=== PATIENT | male | born 1980 | race Caucasian/White ===

== ENCOUNTER 2022-08-04 21:44 | Emergency (ER) | payer BC, OTHER ==
[2022-08-04 21:55] VITALS: O2SAT 100
[2022-08-04] MEDS ORDERED: MORPHINE SULFATE 4 MG INJ IV ONE (22:02)
[2022-08-04] MEDS ORDERED: Zofran 4 MG/2 ML VIAL IV ONE (22:02)
[2022-08-04] MEDS ORDERED: Sodium Chloride 0.9% 1000 ML 1,000 ML IV STA (22:02)
[2022-08-04] MEDS ORDERED: Zofran 4 MG/2 ML VIAL ONE (22:05)
[2022-08-04] MEDS ORDERED: Sodium Chloride 0.9% 1000 ML 1,000 ML ONE (22:06)
[2022-08-04] MEDS ORDERED: MORPHINE SULFATE 4 MG INJ ONE (22:06)
--- NOTE | 2022-08-04 22:07 | ERPHSYRPT ---
- History of Present Illness Time Seen by Provider: 08/04/22 22:02 Historian: patient Exam Limitations: no limitations Patient Subjective Stated Complaint: pt has been having abdominal for the last two nights, states he has been drinking baking soda and it goes away. pt states he has been having regular bms. Triage Nursing Assessment: pt is alert and oriented, walks slowly to rooms, holding abdomen, abdomen is tender to touch and there are regular bowel sounds throughout.pt rates pain in abdoemn at 10 Physician History: 41 years old male presented in the ER with chief complaint of periumbilical pain starting almost 2 hours prior to arrival with some radiation to right lower quadrant, more with palpation and movements and no significant relieving factors. Denies associated nausea vomiting diarrhea. No fever or chills reported. Denies any urinary symptoms. Timing/Duration: hour(s) (2), constant, sudden, worse Activities at Onset: rest Quality: sharpness Abdominal Pain Onset Location: periumbilical Pain Radiation: RLQ, epigastric Severity of Pain-Max: severe Severity of Pain-Current: severe Modifying Factors: Worsens With: coughing, movement, palpation Associated Symptoms: denies symptoms Previous symptoms: no prior history Allergies/Adverse Reactions: No Known Drug Allergies Allergy (Unverified 08/04/22 21:55) Hx Tetanus, Diphtheria Vaccination/Date Given: No Travel Risk - International Travel Have you traveled outside of the country in past 3 weeks: No - Coronavirus Screening Are you exhibiting any of the following symptoms?: No Close contact with a COVID-19 positive Pt in past 14-21 Days: No - Vaccine Status Have you recieved a Covid-19 vaccination: No - Review of Systems Constitutional: No Symptoms Eyes: No Symptoms Ears, Nose, & Throat: No Symptoms Respiratory: No Symptoms Cardiac: No Symptoms Abdominal/Gastrointestinal: Abdominal Pain Genitourinary Symptoms: No Symptoms Musculoskeletal: No Symptoms Neurological: No Symptoms Psychological: No Symptoms Endocrine: No Symptoms Hematologic/Lymphatic: No Symptoms Immunological/Allergic: No Symptoms - Past Medical History Pertinent Past Medical History: Yes GI Medical History: Polyps Psycho-Social History: Depression - Past Surgical History Past Surgical History: Yes Other Surgical History: r knee repair - Social History Smoking Status: Never smoker Drug Use: none - Nursing Vital Signs Nursing Vital Signs: Initial Vital Signs Temperature 97.0 F 08/04/22 21:47 Pulse Rate 86 08/04/22 21:47 Respiratory Rate 18 08/04/22 21:47 Blood Pressure 136/97 08/04/22 21:47 O2 Sat by Pulse Oximetry 100 08/04/22 21:47 Pain Scale Pain Intensity 8 - Physical Exam General Appearance: no apparent distress, alert Eye Exam: PERRL/EOMI, eyes nml inspection Ears, Nose, Throat Exam: normal ENT inspection, TMs normal, pharynx normal, moist mucous membranes Neck Exam: normal inspection, non-tender, supple, full range of motion Respiratory Exam: normal breath sounds, lungs clear Cardiovascular Exam: regular rate/rhythm, normal heart sounds Gastrointestinal/Abdomen Exam: soft, normal bowel sounds, tenderness (Epigastric/periumbilical with tenderness right lower quadrant.), guarding Extremity Exam: normal inspection, normal range of motion Neurologic Exam: alert, oriented x 3, cooperative Skin Exam: normal color SpO2 Interpretation: normal SpO2: 100 O2 Delivery: Room Air Ordered Tests: Active Orders 24 hr Category Date Time Status IV Insertion STAT Care 08/04/22 22:02 Active NPO (ED) STAT Care 08/04/22 22:02 Active ABDOMEN AND PELVIS W/0 CONTRAS [CT] Stat Exams 08/04/22 22:03 Taken CBC W DIFF Stat Lab 08/04/22 22:18 Completed CMP Stat Lab 08/04/22 22:18 Completed LIPASE Stat Lab 08/04/22 22:18 Completed UA W/RFX CULTURE Stat Lab 08/04/22 22:06 Completed Medication Summary Discontinued Medications Generic Name Dose Route Start Last Admin Trade Name Marilee PRN Reason Stop Dose Admin Sodium Chloride 1,000 mls @ 999 mls/hr 08/04/22 22:02 08/04/22 22:09 Sodium Chloride 0.9% 1000 Ml IV 08/04/22 23:02 999 mls/hr .Q1H1M STA Administration Sodium Chloride Confirm 08/04/22 22:06 Sodium Chloride 0.9% 1000 Ml Administered 08/04/22 22:07 Dose 1,000 mls @ ud .ROUTE .STK-MED ONE Morphine Sulfate 4 mg 08/04/22 22:02 08/04/22 22:09 Morphine Sulfate 4 Mg/Ml Injection IV 08/04/22 22:03 4 mg STAT ONE Administration Morphine Sulfate Confirm 08/04/22 22:06 Morphine Sulfate 4 Mg/Ml Injection Administered 08/04/22 22:07 Dose 4 mg .ROUTE .STK-MED ONE Ondansetron HCl 4 mg 08/04/22 22:02 08/04/22 22:09 Ondansetron Hcl 4 Mg/2 Ml Vial IV 08/04/22 22:03 4 mg STAT ONE Administration Ondansetron HCl Confirm 08/04/22 22:05 Ondansetron Hcl 4 Mg/2 Ml Vial Administered 08/04/22 22:06 Dose 4 mg .ROUTE .STK-MED ONE Lab/Rad Data: Laboratory Result Diagrams 08/04/22 22:18 08/04/22 22:18 Laboratory Results 08/04/22 08/04/22 08/04/22 Range/Units 22:18 22:18 22:06 WBC 10.1 (4.0-10.5) x10^3/uL RBC 4.81 (4.1-5.6) x10^6/uL Hgb 14.4 (12.5-18.0) g/dL Hct 43.4 (42-50) % MCV 90.2 (78-100) fL MCH 29.9 (26-32) pg MCHC 33.2 (32-36) g/dL RDW 12.1 (11.5-14.0) % Plt Count 297 (150-450) x10^3/uL MPV 10.0 (7.5-11.0) fL Gran % 68.9 H (36.0-66.0) % Immature Gran % (Auto) 0.3 (0.00-0.4) % Nucleat RBC Rel Count 0.0 (0.00-0.1) % Eos # (Auto) 0.17 (0-0.5) x10^3/uL Immature Gran # (Auto) 0.03 (0.00-0.03) x10^3u/L Absolute Lymphs (auto) 2.37 (1.0-4.6) x10^3/uL Absolute Monos (auto) 0.50 (0.0-1.3) x10^3/uL Absolute Nucleated RBC 0.00 (0.00-0.01) x10^3u/L Lymphocytes % 23.4 L (24.0-44.0) % Monocytes % 4.9 (0.0-12.0) % Eosinophils % 1.7 (0.00-5.0) % Basophils % 0.8 (0.0-0.4) % Absolute Granulocytes 6.98 H (1.4-6.9) x10^3/uL Basophils # 0.08 (0-0.4) x10^3/uL Sodium 139 (137-145) mmol/L Potassium 4.0 (3.5-5.1) mmol/L Chloride 100 (98-107) mmol/L Carbon Dioxide 31 H (22-30) mmol/L Anion Gap 11.2 (5-15) MEQ/L BUN 10 (9-20) mg/dL Creatinine 1.08 (0.66-1.25) mg/dL Estimated GFR > 60.0 ML/MIN Glucose 134 H (74-106) mg/dL Calcium 8.9 (8.4-10.2) mg/dL Total Bilirubin 0.60 (0.2-1.3) mg/dL AST 49 (17-59) U/L ALT 34 (0-50) U/L Alkaline Phosphatase 83 (38-126) U/L Serum Total Protein 7.3 (6.3-8.2) g/dL Albumin 4.5 (3.5-5.0) g/dL Lipase 82 (23-300) U/L Urinalys Dipstick Clnc MAIN LAB Urine Color YELLOW (YELLOW) Urine Appearance CLEAR (CLEAR) Urine pH >=9.0 (5-6) Ur Specific [place] 1.015 (1.005-1.025) POC Urine Protein Conf 30 (Negative) Urine Ketones NEGATIVE (NEGATIVE) Urine Nitrite NEGATIVE (NEGATIVE) Urine Bilirubin NEGATIVE (NEGATIVE) Urine Urobilinogen 1 (0-1) mg/dL Urine Leukocytes NEGATIVE (NEGATIVE) Urine WBC (Auto) NONE (0-5) /HPF Urine RBC (Auto) NONE (0-2) /HPF U Epithel Cells (Auto) NONE (FEW) /HPF Urine Bacteria (Auto) NONE (NEGATIVE) /HPF Urine RBC NEGATIVE (0-5) Luis/ul Urine Mucus (Auto) SLIGHT (NEGATIVE) /HPF Ur Culture Indicated? NO Urine Glucose NEGATIVE (NEGATIVE) mg/dL - Progress Progress: improved, re-examined Progress Note: 09/11/22 23:03 41 years old is evaluated for periumbilical pain, given symptomatic treatment, on reevaluation feeling much better. Now pain is more in the epigastric area. It seems like patient has acid reflux and given Protonix. I will continue with Protonix to go home. Has normal white count, unremarkable chemistries, no UTI and CT abdomen pelvis negative for any acute findings. Counseled pt/family regarding: lab results, diagnosis, need for follow-up, rad results - Departure Departure Disposition: Home Clinical Impression: Periumbilical pain Condition: Stable Critical Care Time: No Referrals: DOCTOR,NO FAMILY [Primary Care Provider] - Follow up/PCP as directed STEPH OCHOA [ACTIVE STAFF] - Follow Up with PCP/3 days Instructions: Acid Reflux and GERD in Adults (DC), Severe Abdominal Pain, Adult (DC) Additional Instructions: Take Tylenol as needed for pain. Follow-up with primary care for reevaluation. Return to ER for worsening abdominal pain, intractable nausea vomiting etc. Prescriptions: PANTOPRAZOLE 40 mg Tablet [Protonix 40MG Tablet] 40 mg PO QAM #30 tab
[2022-08-04 22:25] LABS: Absolute Neutrophil Ct (ANC) 6.98 x10^3/uL (1.4-6.9); Basophil (Absolute #) 0.08 x10^3/uL (0-0.4); Eosinophil % 1.7 % (0.00-5.0); Eosinophil (Absolute #) 0.17 x10^3/uL (0-0.5); Hematocrit 43.4 % (42-50); Hemoglobin 14.4 g/dL (12.5-18.0); Lymphocyte (Absolute #) 2.37 x10^3/uL (1.0-4.6); Lymphocytes % 23.4 % (24.0-44.0); Mean Cell Volume 90.2 fL (78-100); Mean Corpuscular Hemoglobin 29.9 pg (26-32); Mean Corpuscular Hgb Concent. 33.2 g/dL (32-36); Monocytes % 4.9 % (0.0-12.0); Neutrophil % 68.9 % (36.0-66.0); Platelet Count 297 x10^3/uL (150-450); Red Blood Count 4.81 x10^6/uL (4.1-5.6); Red Cell Distribution Width 12.1 % (11.5-14.0); White Blood Count 10.1 x10^3/uL (4.0-10.5)
[2022-08-04 22:34] LABS: Mucus SLIGHT /HPF (NEGATIVE)
[2022-08-04 22:34] LABS: ALBUMIN 4.5 g/dL (3.5-5.0); ALKALINE PHOSPHATASE 83 U/L (38-126); ANION GAP 11.2 MEQ/L (5-15); BLOOD UREA NITROGEN 10 mg/dL (9-20); CHLORIDE 100 mmol/L (98-107); Calcium 8.9 mg/dL (8.4-10.2); Carbon Dioxide 31 mmol/L (22-30); Creatinine 1 1.08 mg/dL (0.66-1.25); EST GLOMERULAR FILTRATION RATE > 60.0 ML/MIN; Glucose 134 mg/dL (74-106); LIPASE 82 U/L (23-300); SGOT/AST 49 U/L (17-59); SGPT/ALT 34 U/L (0-50); SODIUM 139 mmol/L (137-145); Total Protein 7.3 g/dL (6.3-8.2)
[2022-08-04 22:35] LABS: Appearance CLEAR (CLEAR); Bilirubin NEGATIVE (NEGATIVE); Dipstick done @ ? MAIN LAB; Glucose NEGATIVE (NEGATIVE); Ketones NEGATIVE (NEGATIVE); Nitrite NEGATIVE (NEGATIVE); Ph >=9.0 (5-6); Protein,Urine Dip 30 (Negative); RBC NEGATIVE Ery/ul (0-5); Specific Gravity 1.015 (1.005-1.025); Urobilinogen 1 mg/dL (0-1)
[2022-08-04 22:36] VITALS: BP 125/81; PULSE 80
[2022-08-04 22:36] LABS: Urine Cultured Indicated? NO
[2022-08-04] MEDS ORDERED: PROTONIX 40 MG IV IV ONE ×2 (23:02→23:03)
--- NOTE | 2022-08-05 21:46 | XRAY ---
Exam: CT of the abdomen and pelvis without IV contrast from 11/03/2022. CTDI: 4.53 mGy Comparison: None. Indication: 41-year-old male with periumbilical abdominal pain; no history of prior abdominal/pelvic surgery. Technique: Non-IV contrast axial images were obtained through the abdomen and pelvis. Reconstructed coronal and axial images were created and reviewed. No oral contrast was administered. Findings: The visualized lung bases appear clear. The heart size is normal. The liver appears mildly enlarged with the right hepatic lobe measuring 19 cm in greatest craniocaudal dimension on sagittal image #43. No gross hepatic mass or intrahepatic biliary duct distention is seen. The gallbladder is distended and reveals no dense calcifications within it. Fluid/secretions are seen within the stomach lumen. The spleen is of normal size. There is a small splenule adjacent to the medial aspect of the inferior portion of the spleen. No splenic mass is seen. The pancreas and adrenal glands appear unremarkable. The kidneys are of unremarkable size and shape. No renal calculi or hydronephrosis is seen. No definite ureteral distention or ureterolith is seen. The urinary bladder appears unremarkable. The abdominal aorta appears of normal diameter. No abnormal retroperitoneal lymphadenopathy is seen. There is no free intraperitoneal air. No ventral abdominal wall hernia is seen. The region of the umbilicus appears unremarkable. No bowel distention to suggest bowel obstruction is seen. Some mild scattered stool is seen throughout the colon. I see no findings of appendicitis within the right lower quadrant. The urinary bladder is partially empty. I see no pelvic mass or free intraperitoneal fluid. No abnormal pelvic lymphadenopathy is seen. The seminal vesicles appear unremarkable. The prostate gland measures 4.95 cm in width and 3.8 cm in AP dimension on axial image #80. I see no acute fracture or aggressive bone lesion. There is evidence of bilateral spondylolysis of L5 with at least 1 cm spondylolisthesis of L5 over S1. This is at least grade 1. Mild degenerative disc disease is seen at L5-S1 manifested by mild interspace narrowing, vacuum disc phenomena, and mild anterior vertebral endplate spurring. Impression: 1. I see no evidence of acute intra-abdominal or pelvic process. 2. Bilateral spondylolysis of L5 with grade 1 anterior spondylolisthesis of L5 over S1. I also note mild degenerative disc disease at L5-S1. 3. There appears to be borderline to mild enlargement of the liver within the right hepatic lobe measuring about 19.0 cm in greatest craniocaudal dimension.
== END 2022-08-04 23:14 | disposition home or self-care (01) ==
LOC: ED 21:44
DX: R10.33 Periumbilical pain (principal); Z28.310 Unvaccinated for COVID-19
CPT/HCPCS: 36000; 36415; 74176; 80053; 81015; 83690; 85025; 96374; 96375; 99284; J2270; J2405

== ENCOUNTER 2022-09-06 04:54 | Observation (INO) | payer OTHER ==
[2022-09-06] MEDS ORDERED: Zofran 4 MG/2 ML VIAL IV ONE (05:04)
[2022-09-06] MEDS ORDERED: Sodium Chloride 0.9% 1000 ML 1,000 ML IV STA (05:04)
[2022-09-06] MEDS ORDERED: MORPHINE SULFATE 4 MG INJ IV ONE ×2 (05:04→05:45)
[2022-09-06] MEDS ORDERED: PROTONIX 40 MG IV IV ONE ×2 (05:04→05:09)
[2022-09-06] MEDS ORDERED: Zofran 4 MG/2 ML VIAL ONE (05:08)
[2022-09-06] MEDS ORDERED: MORPHINE SULFATE 4 MG INJ ONE ×2 (05:09→05:42)
[2022-09-06] MEDS ORDERED: Sodium Chloride 0.9% 1000 ML 1,000 ML ONE (05:09)
--- NOTE | 2022-09-06 05:09 | ERPHSYRPT ---
- History of Present Illness Historian: patient Exam Limitations: no limitations Timing/Duration: hour(s) (1), constant, sudden, worse Activities at Onset: rest Quality: sharpness Abdominal Pain Onset Location: RUQ, epigastric Pain Radiation: no radiation Severity of Pain-Max: severe Severity of Pain-Current: severe Modifying Factors: Worsens With: movement, palpation Associated Symptoms: nausea, vomiting Previous symptoms: same symptoms as today Hx Tetanus, Diphtheria Vaccination/Date Given: No <DEIRDRE RICHARDSON - Last Filed: 09/06/22 06:47> <JACQUI JOSEPH - Last Filed: 09/06/22 10:06> - History of Present Illness Time Seen by Provider: 09/06/22 05:00 Physician History: 41 years old male presented in the ER with chief complaint of sudden onset right upper quadrant/epigastric pain moderate to severe sharp, aggravated with movements palpation, deep breathing and coughing and no significant relieving factors. Associated with nausea and nonprojectile, nonbilious vomiting without hematemesis. Reports having similar symptoms little over a month ago. No fever or chills reported. (DEIRDRE RICHARDSON) Allergies/Adverse Reactions: No Known Drug Allergies Allergy (Verified 09/06/22 05:10) Travel Risk - Vaccine Status Have you recieved a Covid-19 vaccination: No <DEIRDRE RICHARDSON - Last Filed: 09/06/22 06:47> - Review of Systems Constitutional: No Symptoms Eyes: No Symptoms Ears, Nose, & Throat: No Symptoms Respiratory: No Symptoms Cardiac: No Symptoms Abdominal/Gastrointestinal: Abdominal Pain, Nausea, Vomiting Genitourinary Symptoms: No Symptoms Musculoskeletal: No Symptoms Skin: No Symptoms Neurological: No Symptoms Psychological: No Symptoms Endocrine: No Symptoms Hematologic/Lymphatic: No Symptoms Immunological/Allergic: No Symptoms <DEIRDRE RICHARDSON - Last Filed: 09/06/22 06:47> - Past Medical History Pertinent Past Medical History: Yes GI Medical History: Polyps Psycho-Social History: Depression - Past Surgical History Past Surgical History: Yes Other Surgical History: r knee repair - Social History Smoking Status: Never smoker Drug Use: none <DEIRDRE RICHARDSON - Last Filed: 09/06/22 06:47> - Physical Exam General Appearance: no apparent distress Eye Exam: PERRL/EOMI Ears, Nose, Throat Exam: normal ENT inspection Neck Exam: normal inspection, full range of motion Respiratory Exam: normal breath sounds, lungs clear Cardiovascular Exam: regular rate/rhythm, normal heart sounds Gastrointestinal/Abdomen Exam: soft, normal bowel sounds, tenderness (Right upper), guarding, rebound Back Exam: normal inspection, normal range of motion Extremity Exam: normal inspection, normal range of motion Neurologic Exam: alert, oriented x 3, cooperative Skin Exam: normal color SpO2 Interpretation: normal SpO2: 96 O2 Delivery: Room Air <DEIRDRE RICHARDSON - Last Filed: 09/06/22 06:47> - Nursing Vital Signs Nursing Vital Signs: Initial Vital Signs Temperature 96.7 F 09/06/22 04:58 Pulse Rate 45 L 09/06/22 04:58 Respiratory Rate 18 09/06/22 04:58 Blood Pressure 149/94 09/06/22 04:58 O2 Sat by Pulse Oximetry 100 09/06/22 04:58 Pain Scale Pain Intensity 0 - CT Exams Abdomen/Pelvis CT Interpretation: Tele-radiologist Report (Distended gallbladder wo cholecystitis) - Radiology Ultrasound Exam Gallbladder Ultrasound: discussed w/radiologist (Stones/Sludge/No cholecystitis) <JACQUI JOSEPH - Last Filed: 09/06/22 10:06> Ordered Tests: Active Orders 24 hr Category Date Time Status Bedrest with BRP/BSC ROUTINE Activity 09/06/22 09:31 Active Code Status Order ROUTINE Care 09/06/22 09:30 Active IV Care Q6H Care 09/06/22 09:30 Active IV Insertion STAT Care 09/06/22 05:04 Active NPO (ED) STAT Care 09/06/22 05:[address] in Observation ROUTINE Care 09/06/22 09:30 Active Vital Signs Q4H Care 09/06/22 09:30 Active NPO Diet 09/06/22 09:31 Active ABDOMEN AND PELVIS W/0 CONTRAS [CT] Stat Exams 09/06/22 05:22 Completed ABDOMINAL-LIMITED [US] Stat Exams 09/06/22 08:10 Completed AMYLASE Stat Lab 09/06/22 05:20 Completed CBC W DIFF AM.LAB Lab 09/07/22 04:00 Ordered CBC W DIFF Stat Lab 09/06/22 05:20 Completed CMP AM.LAB Lab 09/07/22 04:00 Ordered CMP Stat Lab 09/06/22 05:20 Completed LIPASE Stat Lab 09/06/22 05:20 Completed TROPONIN Q4H Lab 09/06/22 05:20 Completed TROPONIN Q4H Lab 09/06/22 09:15 Completed TROPONIN Q4H Lab 09/06/22 13:15 Ordered UA W/RFX CULTURE Stat Lab 09/06/22 07:26 Completed Transfer Order Routine Transfer 09/06/22 Ordered Medication Summary Generic Name Dose Route Start Last Admin Trade Name Marilee PRN Reason Stop Dose Admin Hydromorphone HCl 1 mg 09/06/22 09:30 Hydromorphone 1 Mg/1ml Inj 1 Mg/Ml Syringe IV 09/11/22 09:29 Q4H PRN PRN PAIN Lactated Ringer's 1,000 mls @ 100 mls/hr 09/06/22 10:00 Lactated Ringers IV 10/06/22 09:59 .Q10H ALYSHA Ondansetron HCl 4 mg 09/06/22 09:30 Ondansetron Hcl 4 Mg/2 Ml Vial IV 10/06/22 09:29 Q6H PRN PRN NAUSEA/VOMITING Pantoprazole Sodium 40 mg 09/06/22 10:00 Pantoprazole 40 Mg Vial IV 10/06/22 09:59 Q24H10 ALYSHA Discontinued Medications Generic Name Dose Route Start Last Admin Trade Name Marilee PRN Reason Stop Dose Admin Fentanyl Citrate 100 mcg 09/06/22 07:54 09/06/22 07:57 Fentanyl Citrate 100 Mcg/2 Ml* Vial IV 09/06/22 07:55 100 mcg STAT ONE Administration Fentanyl Citrate Confirm 09/06/22 07:55 Fentanyl Citrate 100 Mcg/2 Ml* Vial Administered 09/06/22 07:56 Dose 100 mcg .ROUTE .STK-MED ONE Sodium Chloride 1,000 mls @ 999 mls/hr 09/06/22 05:04 09/06/22 06:12 Sodium Chloride 0.9% 1000 Ml IV 09/06/22 06:04 Infused .Q1H1M STA Infusion Sodium Chloride Confirm 09/06/22 05:09 Sodium Chloride 0.9% 1000 Ml Administered 09/06/22 05:10 Dose 1,000 mls @ ud .ROUTE .STK-MED ONE Morphine Sulfate 4 mg 09/06/22 05:04 09/06/22 05:11 Morphine Sulfate 4 Mg/Ml Injection IV 09/06/22 05:05 4 mg STAT ONE Administration Morphine Sulfate Confirm 09/06/22 05:09 Morphine Sulfate 4 Mg/Ml Injection Administered 09/06/22 05:10 Dose 4 mg .ROUTE .STK-MED ONE Morphine Sulfate Confirm 09/06/22 05:42 Morphine Sulfate 4 Mg/Ml Injection Administered 09/06/22 05:43 Dose 4 mg .ROUTE .STK-MED ONE Morphine Sulfate 4 mg 09/06/22 05:45 09/06/22 05:45 Morphine Sulfate 4 Mg/Ml Injection IV 09/06/22 05:46 4 mg STAT ONE Administration Ondansetron HCl 4 mg 09/06/22 05:04 09/06/22 05:11 Ondansetron Hcl 4 Mg/2 Ml Vial IV 09/06/22 05:05 4 mg STAT ONE Administration Ondansetron HCl Confirm 09/06/22 05:08 Ondansetron Hcl 4 Mg/2 Ml Vial Administered 09/06/22 05:09 Dose 4 mg .ROUTE .STK-MED ONE Pantoprazole Sodium 40 mg 09/06/22 05:04 09/06/22 05:11 Pantoprazole 40 Mg Vial IV 09/06/22 05:05 40 mg STAT ONE Administration Pantoprazole Sodium Confirm 09/06/22 05:09 Pantoprazole 40 Mg Vial Administered 09/06/22 05:10 Dose 40 mg IV .STK-MED ONE Lab/Rad Data: Laboratory Result Diagrams 09/06/22 05:20 09/06/22 05:20 Laboratory Results 09/06/22 09/06/22 09/06/22 Range/Units 09:15 07:26 05:20 WBC (4.0-10.5) x10^3/uL RBC (4.1-5.6) x10^6/uL Hgb (12.5-18.0) g/dL Hct (42-50) % MCV (78-100) fL MCH (26-32) pg MCHC (32-36) g/dL RDW (11.5-14.0) % Plt Count (150-450) x10^3/uL MPV (7.5-11.0) fL Gran % (36.0-66.0) % Immature Gran % (Auto) (0.00-0.4) % Nucleat RBC Rel Count (0.00-0.1) % Eos # (Auto) (0-0.5) x10^3/uL Immature Gran # (Auto) (0.00-0.03) x10^3u/L Absolute Lymphs (auto) (1.0-4.6) x10^3/uL Absolute Monos (auto) (0.0-1.3) x10^3/uL Absolute Nucleated RBC (0.00-0.01) x10^3u/L Lymphocytes % (24.0-44.0) % Monocytes % (0.0-12.0) % Eosinophils % (0.00-5.0) % Basophils % (0.0-0.4) % Absolute Granulocytes (1.4-6.9) x10^3/uL Basophils # (0-0.4) x10^3/uL Sodium (137-145) mmol/L Potassium (3.5-5.1) mmol/L Chloride (98-107) mmol/L Carbon Dioxide (22-30) mmol/L Anion Gap (5-15) MEQ/L BUN (9-20) mg/dL Creatinine (0.66-1.25) mg/dL Estimated GFR ML/MIN Glucose (74-106) mg/dL Calcium (8.4-10.2) mg/dL Total Bilirubin (0.2-1.3) mg/dL AST (17-59) U/L ALT (0-50) U/L Alkaline Phosphatase (38-126) U/L Troponin I < 0.012 < 0.012 (0.000-0.034) ng/mL Serum Total Protein (6.3-8.2) g/dL Albumin (3.5-5.0) g/dL Amylase (30-110) U/L Lipase (23-300) U/L Urinalys Dipstick Clnc MAIN LAB Urine Color YELLOW (YELLOW) Urine Appearance CLEAR (CLEAR) Urine pH 5.5 (5-6) Ur Specific [place] >=1.030 (1.005-1.025) POC Urine Protein Conf NEGATIVE (Negative) Urine Ketones NEGATIVE (NEGATIVE) Urine Nitrite NEGATIVE (NEGATIVE) Urine Bilirubin NEGATIVE (NEGATIVE) Urine Urobilinogen 0.2 (0-1) mg/dL Urine Leukocytes NEGATIVE (NEGATIVE) Urine WBC (Auto) NONE (0-5) /HPF Urine RBC (Auto) 0-2 (0-2) /HPF U Epithel Cells (Auto) NONE (FEW) /HPF Urine Bacteria (Auto) NONE (NEGATIVE) /HPF Urine RBC NEGATIVE (0-5) Luis/ul Urine Mucus (Auto) SLIGHT (NEGATIVE) /HPF Ur Culture Indicated? NO Urine Glucose NEGATIVE (NEGATIVE) mg/dL 09/06/22 09/06/22 Range/Units 05:20 05:20 WBC 12.1 H (4.0-10.5) x10^3/uL RBC 5.18 (4.1-5.6) x10^6/uL Hgb 15.6 (12.5-18.0) g/dL Hct 47.4 (42-50) % MCV 91.5 (78-100) fL MCH 30.1 (26-32) pg MCHC 32.9 (32-36) g/dL RDW 12.5 (11.5-14.0) % Plt Count 355 (150-450) x10^3/uL MPV 10.5 (7.5-11.0) fL Gran % 45.9 (36.0-66.0) % Immature Gran % (Auto) 0.2 (0.00-0.4) % Nucleat RBC Rel Count 0.0 (0.00-0.1) % Eos # (Auto) 0.74 H (0-0.5) x10^3/uL Immature Gran # (Auto) 0.03 (0.00-0.03) x10^3u/L Absolute Lymphs (auto) 4.71 H (1.0-4.6) x10^3/uL Absolute Monos (auto) 0.93 (0.0-1.3) x10^3/uL Absolute Nucleated RBC 0.00 (0.00-0.01) x10^3u/L Lymphocytes % 39.1 (24.0-44.0) % Monocytes % 7.7 (0.0-12.0) % Eosinophils % 6.1 H (0.00-5.0) % Basophils % 1.0 (0.0-0.4) % Absolute Granulocytes 5.53 (1.4-6.9) x10^3/uL Basophils # 0.12 (0-0.4) x10^3/uL Sodium 139 (137-145) mmol/L Potassium 3.8 (3.5-5.1) mmol/L Chloride 98 (98-107) mmol/L Carbon Dioxide 32 H (22-30) mmol/L Anion Gap 12.6 (5-15) MEQ/L BUN 17 (9-20) mg/dL Creatinine 1.15 (0.66-1.25) mg/dL Estimated GFR > 60.0 ML/MIN Glucose 141 H (74-106) mg/dL Calcium 9.7 (8.4-10.2) mg/dL Total Bilirubin 0.60 (0.2-1.3) mg/dL AST 27 (17-59) U/L ALT 33 (0-50) U/L Alkaline Phosphatase 102 (38-126) U/L Troponin I (0.000-0.034) ng/mL Serum Total Protein 8.7 H (6.3-8.2) g/dL Albumin 5.0 (3.5-5.0) g/dL Amylase 74 (30-110) U/L Lipase 96 (23-300) U/L Urinalys Dipstick Clnc Urine Color (YELLOW) Urine Appearance (CLEAR) Urine pH (5-6) Ur Specific [place] (1.005-1.025) POC Urine Protein Conf (Negative) Urine Ketones (NEGATIVE) Urine Nitrite (NEGATIVE) Urine Bilirubin (NEGATIVE) Urine Urobilinogen (0-1) mg/dL Urine Leukocytes (NEGATIVE) Urine WBC (Auto) (0-5) /HPF Urine RBC (Auto) (0-2) /HPF U Epithel Cells (Auto) (FEW) /HPF Urine Bacteria (Auto) (NEGATIVE) /HPF Urine RBC (0-5) Luis/ul Urine Mucus (Auto) (NEGATIVE) /HPF Ur Culture Indicated? Urine Glucose (NEGATIVE) mg/dL - Progress Progress: improved, pain not gone completely, re-examined Counseled pt/family regarding: lab results, diagnosis, need for follow-up <DEIRDRE RICHARDSON - Last Filed: 09/06/22 06:47> - Progress Counseled pt/family regarding: rad results <JACQUI JOSEPH Last Filed: 09/06/22 10:06> - Progress Progress Note: 09/06/22 06:47 41 years old is evaluated for upper abdominal pain. Given symptomatic treatment along with fluids. Has a white count of 12, grossly unremarkable chemistries. CT abdomen pelvis is pending, care is transferred to Dr. Joseph at shift change for reevaluation and final disposition. (DEIRDRE RICHARDSON) 09/06/22 07:45 Assumed care of pt at 7:00AM w RUQ pain since 3:00AM. Pain greatly improved. Labs WNL. Waiting on CT ab-pelvis result. Lungs CTA/Heart RRR woM/Abdomen soft, RUQ ttp mildly wo guarding or rebound 09/06/22 10:[address] through OR nurse, wants pt admitted to hospitalist and will operate in AM. 09/06/22 10:05 Pain increased again, treated effectively w 100mcg IV Fentanyl (JACQUI JOSEPH) <DEIRDRE RICHARDSON - Last Filed: 09/06/22 06:47> - Departure Departure Disposition: Observation Critical Care Time: No <JACQUI JOSEPH - Last Filed: 09/06/22 10:06> - Departure Clinical Impression: Cholelithiasis Condition: Stable Referrals: DOCTOR,NO FAMILY [Primary Care Provider] - Follow up/PCP as directed
[2022-09-06 05:28] LABS: Absolute Neutrophil Ct (ANC) 5.53 x10^3/uL (1.4-6.9); Basophil (Absolute #) 0.12 x10^3/uL (0-0.4); Eosinophil % 6.1 % (0.00-5.0); Eosinophil (Absolute #) 0.74 x10^3/uL (0-0.5); Hematocrit 47.4 % (42-50); Hemoglobin 15.6 g/dL (12.5-18.0); Lymphocyte (Absolute #) 4.71 x10^3/uL (1.0-4.6); Lymphocytes % 39.1 % (24.0-44.0); Mean Cell Volume 91.5 fL (78-100); Mean Corpuscular Hemoglobin 30.1 pg (26-32); Mean Corpuscular Hgb Concent. 32.9 g/dL (32-36); Mean Platelet Volume 10.5 fL (7.5-11.0); Monocyte (Absolute #) 0.93 x10^3/uL (0.0-1.3); Monocytes % 7.7 % (0.0-12.0); Neutrophil % 45.9 % (36.0-66.0); Platelet Count 355 x10^3/uL (150-450); Red Blood Count 5.18 x10^6/uL (4.1-5.6); Red Cell Distribution Width 12.5 % (11.5-14.0); White Blood Count 12.1 x10^3/uL (4.0-10.5)
[2022-09-06 05:42] LABS: ALKALINE PHOSPHATASE 102 U/L (38-126); AMYLASE 74 U/L (30-110); ANION GAP 12.6 MEQ/L (5-15); BLOOD UREA NITROGEN 17 mg/dL (9-20); CHLORIDE 98 mmol/L (98-107); Calcium 9.7 mg/dL (8.4-10.2); Carbon Dioxide 32 mmol/L (22-30); Creatinine 1 1.15 mg/dL (0.66-1.25); EST GLOMERULAR FILTRATION RATE > 60.0 ML/MIN; Glucose 141 mg/dL (74-106); LIPASE 96 U/L (23-300); Potassium 3.8 mmol/L (3.5-5.1); SGOT/AST 27 U/L (17-59); SGPT/ALT 33 U/L (0-50); SODIUM 139 mmol/L (137-145); Total Protein 8.7 g/dL (6.3-8.2)
[2022-09-06] MEDS ORDERED: SUBLIMAZE 100 MCG/2 ML IV ONE (07:54)
[2022-09-06] MEDS ORDERED: SUBLIMAZE 100 MCG/2 ML ONE (07:55)
[2022-09-06 08:05] LABS: Mucus SLIGHT /HPF (NEGATIVE); RBC 0-2 /HPF (0-2)
[2022-09-06 08:14] LABS: Appearance CLEAR (CLEAR); Bilirubin NEGATIVE (NEGATIVE); Glucose NEGATIVE (NEGATIVE); Ketones NEGATIVE (NEGATIVE); Nitrite NEGATIVE (NEGATIVE); Ph 5.5 (5-6); Protein,Urine Dip NEGATIVE (Negative); RBC NEGATIVE Ery/ul (0-5); Specific Gravity >=1.030 (1.005-1.025); Urine Cultured Indicated? NO; Urobilinogen 0.2 mg/dL (0-1)
[2022-09-06 08:16] LABS: Dipstick done @ ? MAIN LAB
--- NOTE | 2022-09-06 08:44 | XRAY ---
Indication: Right upper quadrant and right back pain. Multiple contiguous axial images obtained through the abdomen and pelvis without contrast. Comparison: August 04, 2022 Lung bases remain clear. Heart not enlarged. Noncontrasted stomach and bowel loops nonobstructed again with normal appendix. Again mild sigmoid diverticulosis without diverticulitis. There is now mild diffuse scattered colonic fecal debris throughout. Gallbladder mildly distended without gallstones. No free fluid/air. Remaining liver, gallbladder, pancreas, spleen, adrenal glands, kidneys, ureters, bladder, and aorta are unremarkable for noncontrast exam. Osseous structures intact with stable L5-S1 disc space loss and bilateral L5 spondylolysis with grade 2 listhesis. Impression: 1. Mild distended gallbladder. Sonogram may yield further information if clinically warranted. 2. Mild diffuse fecal stasis. 3. Stable L5-S1 degenerative disc disease and L5 spondylolysis with grade 2 listhesis. Comment: Preliminary interpretation made by [facility] who does not report incidental lumbar findings.
--- NOTE | 2022-09-06 08:56 | XRAY ---
Indication: Right upper quadrant pain. Two-dimensional right upper quadrant abdominal sonogram performed. Gallbladder is distended with intraluminal sludge and multiple small gallstones, largest 1 cm. No abnormal gallbladder wall thickening or pericholecystic fluid. Common bile duct measures 6 no meter. No intrahepatic biliary distention. Remaining visualized liver, pancreas, and right kidney are sonographically unremarkable. Right kidney measures 11.2 cm in length. Impression: Distended gallbladder with sludge and gallstones. Negative for acute cholecystitis or biliary distention.
[2022-09-06] MEDS ORDERED: Zofran 4 MG/2 ML VIAL IV PRN (09:30)
[2022-09-06 10:26] LABS: INFLUENZA A NEGATIVE (NEGATIVE); INFLUENZA B NEGATIVE (NEGATIVE); RESPIRATORY SYNCTIAL VIRUS NEGATIVE (Negative); SARS-CoV-2 Xpert Express NEGATIVE (NEGATIVE)
[2022-09-06] MEDS: PROTONIX 40 MG IV IV SCH (10:34)
[2022-09-06] MEDS: Lactated Ringers 1,000 ML IV SCH ×2 (10:35→11:23)
[2022-09-06] MEDS: Hydromorphone 1 mg/ml Injection IV PRN (11:23)
[2022-09-06] MEDS: OXYCODONE-ACETAMINOPHEN 10-325 PO PRN ×2 (18:28→23:28)
[2022-09-07] MEDS: OXYCODONE-ACETAMINOPHEN 10-325 PO PRN ×2 (03:57→14:04)
[2022-09-07 06:04] LABS: Absolute Neutrophil Ct (ANC) 5.08 x10^3/uL (1.4-6.9); Basophil (Absolute #) 0.07 x10^3/uL (0-0.4); Eosinophil % 4.8 % (0.00-5.0); Eosinophil (Absolute #) 0.47 x10^3/uL (0-0.5); Hematocrit 38.9 % (42-50); Hemoglobin 12.8 g/dL (12.5-18.0); Lymphocyte (Absolute #) 3.47 x10^3/uL (1.0-4.6); Lymphocytes % 35.1 % (24.0-44.0); Mean Cell Volume 91.7 fL (78-100); Mean Corpuscular Hemoglobin 30.2 pg (26-32); Mean Corpuscular Hgb Concent. 32.9 g/dL (32-36); Mean Platelet Volume 10.7 fL (7.5-11.0); Monocyte (Absolute #) 0.76 x10^3/uL (0.0-1.3); Monocytes % 7.7 % (0.0-12.0); Neutrophil % 51.4 % (36.0-66.0); Platelet Count 251 x10^3/uL (150-450); Red Blood Count 4.24 x10^6/uL (4.1-5.6); Red Cell Distribution Width 13.1 % (11.5-14.0); White Blood Count 9.9 x10^3/uL (4.0-10.5)
[2022-09-07 06:38] LABS: ALBUMIN 3.7 g/dL (3.5-5.0); ALKALINE PHOSPHATASE 73 U/L (38-126); AMYLASE 55 U/L (30-110); ANION GAP 7.9 MEQ/L (5-15); BLOOD UREA NITROGEN 8 mg/dL (9-20); CHLORIDE 102 mmol/L (98-107); Calcium 8.3 mg/dL (8.4-10.2); Carbon Dioxide 32 mmol/L (22-30); EST GLOMERULAR FILTRATION RATE > 60.0 ML/MIN; Glucose 94 mg/dL (74-106); LIPASE 38 U/L (23-300); Potassium 4.5 mmol/L (3.5-5.1); SGOT/AST 49 U/L (17-59); SGPT/ALT 27 U/L (0-50); SODIUM 137 mmol/L (137-145); Total Protein 6.5 g/dL (6.3-8.2)
[2022-09-07] MEDS: Lactated Ringers 1,000 ML IV SCH (07:04)
[2022-09-07] MEDS ORDERED: Sodium Chloride 0.9% 1000 ML 1,000 ML IV SCH (07:30)
[2022-09-07] MEDS ORDERED: MEFOXIN 2 GM PREMIX** 2 GM/50 ML ML IV SCH (08:00)
[2022-09-07] MEDS: Hydromorphone 1 mg/ml Injection IV PRN (08:00)
[2022-09-07] MEDS: PROTONIX 40 MG IV IV SCH (08:52)
[2022-09-07] MEDS ORDERED: BRIDION 200MG/2ML IV ONE (09:49)
[2022-09-07] MEDS ORDERED: Xylocaine-Mpf 2% 5 Ml Vial ONE (09:49)
[2022-09-07] MEDS ORDERED: SUBLIMAZE 100 MCG/2 ML ONE ×2 (09:49→13:18)
[2022-09-07] MEDS ORDERED: Zofran 4 MG/2 ML VIAL ONE (09:49)
[2022-09-07] MEDS ORDERED: TORAdol 30 mg Injection ONE (09:49)
[2022-09-07] MEDS ORDERED: Decadron 4 MG INJ ONE (09:49)
[2022-09-07] MEDS ORDERED: Zemuron 100 MG/10 ML ONE (09:49)
[2022-09-07] MEDS ORDERED: DIPRIVAN 200 MG/20 ML IV ONE (09:49)
[2022-09-07] MEDS ORDERED: Sensorcaine 0.25% 10 ML ONE (11:11)
--- NOTE | 2022-09-07 11:24 | PCM.HP ---
History of Present Illness - Chief Complaint Chief Complaint: cholecystitis History of Present Illness: is a 41 year old male without significant past medical Hx who presented to ER with sudden onset of RUQ pain N/V . States he has been having upper abd pain for a month and has been taking Ibuprofen with relief until now.Denies hematemesis. Hx GERD that has resolved since he quit drinking 6 months ago. Nonsmoker but does chew tobacco. - Review of Systems Constitutional: No Symptoms, Other (intentional weight loss over past several months) Eyes: No Symptoms Ears, Nose, & Throat: No Symptoms Respiratory: No Symptoms Cardiac: No Symptoms Abdominal/Gastrointestinal: Abdominal Pain, Nausea, Vomiting Genitourinary Symptoms: No Symptoms Musculoskeletal: No Symptoms Skin: No Symptoms Neurological: No Symptoms Psychological: No Symptoms, Other (quit drinking ETOH 6 months ago) Endocrine: No Symptoms Hematologic/Lymphatic: No Symptoms Immunological/Allergic: No Symptoms Medications & Allergies Home Medications: Home Medication List PANTOPRAZOLE 40 mg Tablet [Protonix 40MG Tablet] 40 mg PO QAM #30 tab 08/04/22 [Rx Confirmed 09/06/22] Allergies/Adverse Reactions: Allergies Allergy/AdvReac Type Severity Reaction Status Date / Time No Known Drug Allergies Allergy Verified 09/06/22 05:10 - Past Medical History Past Medical History: Yes Neurological History: No Pertinent History ENT History: No Pertinent History Cardiac History: No Pertinent History Respiratory History: No Pertinent History Endocrine Medical History: No Pertinent History Musculoskelatal History: No Pertinent History GI Medical History: Gallbladder Disease, Polyps History: No Pertinent History Pyscho-Social History: No Pertinent History, Depression Male Reproductive Disorders: No Pertinent History - Past Surgical History Past Surgical History: Yes (knee surgery) Neuro Surgical History: Brain Shunt Cardiac History: No Pertinent History Respiratory Surgery: No Pertinent History GI Surgical History: No Pertinent History Genitourinary Surgical Hx: No Pertinent History Musculskeletal Surgical Hx: No Pertinent History Male Surgical History: No Pertinent History Other Surgical History: r knee repair - Social History Smoking Status: Never smoker Exposure to second hand smoke: No Alcohol: None Drug Use: none - Physical Exam Vital Signs: Vital Signs - 24 hr Temp Pulse Resp BP Pulse Ox 09/07/22 08:40 97.5 F 59 L 18 97/59 99 09/07/22 07:47 97.5 F 59 L 18 97/59 99 09/07/22 04:00 97.8 F 57 L 18 108/59 97 09/06/22 23:49 97.5 F 52 L 18 104/59 98 09/06/22 20:00 97.8 F 56 L 17 103/67 100 09/06/22 16:00 97.5 F 53 L 16 86/49 100 09/06/22 15:09 97.5 F 53 L 16 86/49 100 General Appearance: no apparent distress (has pain med on board and is comfortable now) Neurologic Exam: alert, oriented x 3, cooperative, normal mood/affect Eye Exam: eyes nml inspection Ears, Nose, Throat Exam: normal ENT inspection Neck Exam: normal inspection Respiratory Exam: normal breath sounds Cardiovascular Exam: regular rate/rhythm Gastrointestinal/Abdomen Exam: normal bowel sounds, tenderness (RUQ and epigastrium), distention, guarding Rectal Exam: not done Back Exam: normal inspection Extremity Exam: normal inspection Skin Exam: normal color, warm, dry Results - Labs Lab/Micro Results: Lab Results-Last 24 Hours 09/06/22 09/07/22 09/07/22 Range/Units 13:35 05:30 05:30 WBC 9.9 (4.0-10.5) x10^3/uL RBC 4.24 (4.1-5.6) x10^6/uL Hgb 12.8 (12.5-18.0) g/dL Hct 38.9 L (42-50) % MCV 91.7 (78-100) fL MCH 30.2 (26-32) pg MCHC 32.9 (32-36) g/dL RDW 13.1 (11.5-14.0) % Plt Count 251 (150-450) x10^3/uL MPV 10.7 (7.5-11.0) fL Gran % 51.4 (36.0-66.0) % Immature Gran % (Auto) 0.3 (0.00-0.4) % Nucleat RBC Rel Count 0.0 (0.00-0.1) % Eos # (Auto) 0.47 (0-0.5) x10^3/uL Immature Gran # (Auto) 0.03 (0.00-0.03) x10^3u/L Absolute Lymphs (auto) 3.47 (1.0-4.6) x10^3/uL Absolute Monos (auto) 0.76 (0.0-1.3) x10^3/uL Absolute Nucleated RBC 0.00 (0.00-0.01) x10^3u/L Lymphocytes % 35.1 (24.0-44.0) % Monocytes % 7.7 (0.0-12.0) % Eosinophils % 4.8 (0.00-5.0) % Basophils % 0.7 (0.0-0.4) % Absolute Granulocytes 5.08 (1.4-6.9) x10^3/uL Basophils # 0.07 (0-0.4) x10^3/uL Sodium 137 (137-145) mmol/L Potassium 4.5 (3.5-5.1) mmol/L Chloride 102 (98-107) mmol/L Carbon Dioxide 32 H (22-30) mmol/L Anion Gap 7.9 (5-15) MEQ/L BUN 8 L (9-20) mg/dL Creatinine 1.00 (0.66-1.25) mg/dL Estimated GFR > 60.0 ML/MIN Glucose 94 (74-106) mg/dL Calcium 8.3 L (8.4-10.2) mg/dL Total Bilirubin 0.90 (0.2-1.3) mg/dL AST 49 (17-59) U/L ALT 27 (0-50) U/L Alkaline Phosphatase 73 (38-126) U/L Troponin I < 0.012 (0.000-0.034) ng/mL Serum Total Protein 6.5 (6.3-8.2) g/dL Albumin 3.7 (3.5-5.0) g/dL Amylase 55 (30-110) U/L Lipase 38 (23-300) U/L - Radiology Impressions Radiology Exams & Impressions: Radiology Procedures Category Date Time Status ABDOMEN AND PELVIS W/0 CONTRAS [CT] Stat Exams 09/06/22 05:22 Completed ABDOMINAL-LIMITED [US] Stat Exams 09/06/22 08:10 Completed Assessment/Plan (1) Cholelithiasis Current Visit: Yes Status: Acute Qualifiers: Cholecystitis presence: without cholecystitis (2) Vomiting Current Visit: Yes Status: Resolved Qualifiers: Nausea presence: with nausea Code(s): R11.10 - VOMITING, UNSPECIFIED
[2022-09-07] MEDS ORDERED: Ephedrine Sulfate 50 MG/ML ONE (12:19)
[2022-09-07] MEDS ORDERED: ROBINUL ONE (12:20)
[2022-09-07] MEDS ORDERED: Hydromorphone 1 mg/ml Injection ONE ×2 (13:18→13:28)
[2022-09-07 16:11] VITALS: BP 89/53; PULSE 74; O2SAT 98
--- NOTE | 2022-09-09 09:49 | CONS ---
CONSULT DATE: 09/07/2022 REASON FOR CONSULT: Gallstones with refractory symptoms, right upper quadrant pain. HISTORY: This patient presents with one month of right upper quadrant pain. The pain is in the right upper quadrant not necessarily related to anything but greasy food does make is worse with a sharp stabbing pain. Pain medication makes it better. He does have nausea and vomiting with severe attacks. He had a severe attack starting that brought him into the emergency department. He feels a little bit better today but still having continuous pain today from that severe attack. He denies any chest pain, shortness of breath or other symptoms. PAST MEDICAL HISTORY: None. PAST SURGICAL HISTORY: Knee surgery. MEDICATIONS: Protonix. ALLERGIES: NKDA. SOCIAL HISTORY: Chewing tobacco. No alcohol. FAMILY HISTORY: No irritable bowel disease. REVIEW OF SYSTEMS: All remaining systems reviewed and negative except as noted in history of present illness. PHYSICAL EXAMINATION: GENERAL: No acute distress. HEENT: Sclera nonicteric. Extraocular movements intact. NECK: Supple. No JVD. CHEST: Nonlabored breathing. ABDOMEN: Soft, nondistended, tender focally in the right upper quadrant with some voluntary guarding. SKIN: Warm, dry, intact. EXTREMITIES: Normal range of motion. No edema. NEURO: Awake, alert, oriented. PSYCH: Appropriate mood and affect. LAB DATA AND TESTS: CBC showed white blood cell count 9.2, hemoglobin 12.8, platelet count 251,000. CMP showed total bilirubin 0.9. Ultrasound report was reviewed and it showed gallstones and sludge with a normal common bile duct. No gallbladder wall thickening or pericholecystic fluid. ASSESSMENT AND PLAN: Acute on chronic calculous cholecystitis. Risks and benefits of surgery and alternative to surgery discussed with the patient including risk of bleeding, infection, bowel injury, bile duct injury, potential for subtotal cholecystectomy or other procedures, potential for conversion to open surgery, potential for diarrhea postoperatively, other medical/surgical complications. The patient would like to proceed with surgery. Plan for laparoscopic cholecystectomy possible open.
--- NOTE | 2022-09-09 10:17 | OP ---
SURGERY DATE/TIME: 09/07/2022 PREOPERATIVE DIAGNOSIS: Acute on chronic calculous cholecystitis. POSTOPERATIVE DIAGNOSIS: Acute on chronic calculous cholecystitis. PROCEDURE: Laparoscopic cholecystectomy. SURGEON: Dakota Lane M.D. ANESTHESIA: General. ESTIMATED BLOOD LOSS: 5 cc. COMPLICATIONS: None. SPECIMEN: Gallbladder. FINDINGS: Significant acute edema of the gallbladder wall and hepatocystic triangle. Multiple stones. INDICATION: This patient presents with about a month of gallbladder pain with severe acute exacerbation over the last few days that has been constant. After discussion about the risks and benefits of surgery the patient wished to proceed including risk of bleeding, infection, bile duct injury, other medical/surgical complications and the patient wished to proceed. DESCRIPTION OF PROCEDURE: The patient brought to the OR, placed in supine position on the operating table and placed under general anesthesia. The abdomen was prepped and draped in sterile fashion. Veress needle inserted left upper quadrant. Pneumoperitoneum obtained. 5 mm optical trocar inserted. Under direct visualization the abdomen entered and the area of entry inspected. There did not appear to be any inadvertent injury. An additional 11 port placed in periumbilicus and two - 5 mm ports in the right upper quadrant. The patient was positioned. The gallbladder was very distended but could just barely be grasped and retracted superior laterally. Infundibulum retracted inferior laterally. There is a lot of acute edema. There is some omental adhesions that were taken down with cautery. The edema was quite friendly though. The cystic duct and cystic artery were skeletonized. The bottom third of the hepatocystic plate was skeletonized. Cystic duct and cystic artery were all that remained. They were clipped with the 5 mm metal clip erp manager and transected with hook scissors. The gallbladder is removed the rest of the way from the liver bed with electrocautery. Anatomy was pristine and the gallbladder removed without any difficulty from the liver bed. The gallbladder was placed in the bag and then removed requiring some stretching of the fascia, opening the gallbladder and suctioning out the bile as it was quite distended and eventually it was removed. However upon removal there appeared to be a few gallstones that had fell out into the abdomen under the extraction area. They were removed with a gallstone scoop and some small stones were suctioned out with suction hot box operator. The right upper quadrant was inspected, irrigated and suctioned dry. The field was hemostatic. Everything looked excellent. The 11 mm trocar site was closed with 0 Vicryl suture with suture passer. The remaining trocars were removed under direct visualization. Abdomen desufflated. Wounds injected with 0.25% Marcaine. Wounds closed with 4-0 Vicryl suture. Dressings were applied. The patient was recovered and taken to PACU in stable condition.
== END 2022-09-07 16:31 | disposition home or self-care (01) ==
LOC: ED 04:54 → MED SURG 11:08
PROVIDERS: ADMIT Family Medicine; ATTEND Family Medicine
DX: K81.1 Chronic cholecystitis (principal); R11.10 Vomiting, unspecified; Z79.899 Other long term (current) drug therapy; Z20.828 Contact with and (suspected) exposure to other viral communicable diseases
CPT/HCPCS: 0241U; 36000; 36415; 47562; 74176; 76705; 80053; 81015; 82150; 83690; 84484; 85025; 96360; 96374; 96375; 96376; 99285; G0378; J1100; J1170; J1885; J2270; J2405; J2704; J3010; A9270-GY